=== PATIENT | male | born 1960 | race Caucasian/White ===

== ENCOUNTER 2019-10-19 10:09 | Observation (INO) | payer SELFPAY ==
[~2019-10-19] VITALS: Ht 175.3 cm; Wt 96.0 kg
[2019-10-19 10:46] LABS: BASO # 0.1 x10^3/uL (0.0-0.2); BASO % 1 % (0-3); EOS # 0.1 x10^3/uL (0.0-0.7); EOS % 1 % (0-3); HEMATOCRIT 45.2 % (39.0-53.0); HEMOGLOBIN 15.5 g/dL (13.0-17.5); LYMPH # 1.4 x10^3/uL (1.0-4.8); LYMPH % 22 % (24-48); MEAN CORPUSCULAR HEMOGLOBIN 31 pg (25-35); MEAN CORPUSCULAR HGB CONC 34 g/dL (31-37); MEAN CORPUSCULAR VOLUME 90 fL (79-100); MONO # 0.5 x10^3/uL (0.0-1.1); MONO % 8 % (0-9); NEUT # 4.3 x10^3uL (1.8-7.7); NEUT % 68 % (31-73); PLATELET COUNT 217 x10^3/uL (140-400); RED BLOOD COUNT 5.04 x10^6/uL (4.30-5.70); RED CELL DISTRIBUTION WIDTH 13.5 % (11.5-14.5); WHITE BLOOD COUNT 6.3 x10^3/uL (4.0-11.0)
[2019-10-19 10:54] LABS: CALCIUM 8.8 mg/dL (8.5-10.1); CREATININE 0.9 mg/dL (0.7-1.3); GFR 87.3; POTASSIUM 4.2 mmol/L (3.5-5.1)
--- NOTE | 2019-10-19 11:03 | RAD ---
PORTABLE CHEST 1V History: Shortness of breath. No prior studies for comparison. Note that the exam was obtained with lordotic positioning. Cardiomediastinal silhouette within normal limits. Elevation of the left hemidiaphragm with some blunting of the left costophrenic angle, could be due to scarring. No right pleural effusion. No evidence of focal infiltrate. Bones appear grossly intact. No evidence of pneumothorax. IMPRESSION: Elevation of left hemidiaphragm with blunting of the left costophrenic angle, could be due to chronic scarring or volume loss. No consolidating infiltrate is identified. No prior studies available for comparison. Electronically signed by: Elier Villagomez MD (10/19/2019 11:00 AM) [id number]
[2019-10-19 11:06] LABS: ALBUMIN 3.9 g/dL (3.4-5.0); ALBUMIN/GLOBULIN RATIO 1.2 (1.0-1.7); MAGNESIUM 2.4 mg/dL (1.8-2.4); TOTAL BILIRUBIN 0.4 mg/dL (0.2-1.0); TOTAL PROTEIN 7.1 g/dL (6.4-8.2)
--- NOTE | 2019-10-19 13:01 | PHYS DOC ---
Past History Past Medical History: No Pertinent History Past Surgical History: Hip Replacement Alcohol Use: None Adult General Chief Complaint Chief Complaint: SHORTNESS OF BREATH HPI HPI Patient is a 58-year-old male who presents to ER today for evaluation trouble breathing off and on for several weeks. Patient complains of trouble breathing whenever he walks or exerts himself. Patient said the symptoms get more frequent now, this morning he had some chest pressure associated with shortness of air. Patient said his father had heart attack at the age of 39 SO he wanted to come into have his heart checked out. Patient denies any history of blood clot disorder, no history of high blood pressure, no history of diabetes. Patient denied any cough or fever. Review of Systems Review of Systems Constitutional: Denies fever or chills [] Eyes: Denies change in visual acuity, redness, or eye pain [] HENT: Denies nasal congestion or sore throat [] Respiratory: Denies cough or shortness of breath [] Cardiovascular: No additional information not addressed in HPI [] GI: Denies abdominal pain, nausea, vomiting, bloody stools or diarrhea [] : Denies dysuria or hematuria [] Musculoskeletal: Denies back pain or joint pain [] Integument: Denies rash or skin lesions [] Neurologic: Denies headache, focal weakness or sensory changes [] Endocrine: Denies polyuria or polydipsia [] All other systems were reviewed and found to be within normal limits, except as documented in this note. Allergies Allergies Allergies Coded Allergies Type Severity Reaction Last Updated Verified No Known Drug Allergies 10/19/19 No Physical Exam Physical Exam Constitutional: Well developed, well nourished, no acute distress, non-toxic appearance. [] HENT: Normocephalic, atraumatic, bilateral external ears normal, oropharynx moist, no oral exudates, nose normal. [] Eyes: PERRLA, EOMI, conjunctiva normal, no discharge. [] Neck: Normal range of motion, no tenderness, supple, no stridor. [] Cardiovascular:Heart rate regular rhythm, no murmur [] Lungs & Thorax: Bilateral breath sounds clear to auscultation [] Abdomen: Bowel sounds normal, soft, no tenderness, no masses, no pulsatile masses. [] Skin: Warm, dry, no erythema, no rash. [] Back: No tenderness, no CVA tenderness. [] Extremities: No tenderness, no cyanosis, no clubbing, ROM intact, no edema. [] Neurologic: Alert and oriented X 3, normal motor function, normal sensory function, no focal deficits noted. [] Psychologic: Affect normal, judgement normal, mood normal. [] Current Patient Data Vital Signs Vital Signs Date Time Temp Pulse Resp B/P (MAP) Pulse Ox O2 Delivery O2 Flow Rate FiO2 10/19/19 10:23 98.0 88 18 164/96 (118) 98 Room Air Lab Results Laboratory Tests Test 10/19/19 10:35 10/19/19 10:52 White Blood Count 6.3 x10^3/uL (4.0-11.0) Red Blood Count 5.04 x10^6/uL (4.30-5.70) Hemoglobin 15.5 g/dL (13.0-17.5) Hematocrit 45.2 % (39.0-53.0) Mean Corpuscular Volume 90 fL (79-100) Mean Corpuscular Hemoglobin 31 pg (25-35) Mean Corpuscular Hemoglobin Concent 34 g/dL (31-37) Red Cell Distribution Width 13.5 % (11.5-14.5) Platelet Count 217 x10^3/uL (140-400) Neutrophils (%) (Auto) 68 % (31-73) Lymphocytes (%) (Auto) 22 % (24-48) L Monocytes (%) (Auto) 8 % (0-9) Eosinophils (%) (Auto) 1 % (0-3) Basophils (%) (Auto) 1 % (0-3) Neutrophils # (Auto) 4.3 x10^3uL (1.8-7.7) Lymphocytes # (Auto) 1.4 x10^3/uL (1.0-4.8) Monocytes # (Auto) 0.5 x10^3/uL (0.0-1.1) Eosinophils # (Auto) 0.1 x10^3/uL (0.0-0.7) Basophils # (Auto) 0.1 x10^3/uL (0.0-0.2) Sodium Level 138 mmol/L (136-145) Potassium Level 4.2 mmol/L (3.5-5.1) Chloride Level 104 mmol/L (98-107) Carbon Dioxide Level 22 mmol/L (21-32) Anion Gap 12 (6-14) Blood Urea Nitrogen 18 mg/dL (8-26) Creatinine 0.9 mg/dL (0.7-1.3) Estimated GFR (Cockcroft-Gault) 87.3 BUN/Creatinine Ratio 20 (6-20) Glucose Level 100 mg/dL (70-99) H Calcium Level 8.8 mg/dL (8.5-10.1) Magnesium Level 2.4 mg/dL (1.8-2.4) Total Bilirubin 0.4 mg/dL (0.2-1.0) Aspartate Amino Transferase (AST) 19 U/L (15-37) Alanine Aminotransferase (ALT) 32 U/L (16-63) Alkaline Phosphatase 69 U/L (46-116) Troponin I Quantitative < 0.017 ng/mL (0-0.055) PV-Wju-H-Type Natriuretic Peptide 69 pg/mL (0-124) Total Protein 7.1 g/dL (6.4-8.2) Albumin 3.9 g/dL (3.4-5.0) Albumin/Globulin Ratio 1.2 (1.0-1.7) Lipase 90 U/L (73-393) Prothrombin Time < 9.3 SEC (9.4-11.4) L Prothrombin Time INR 0.9 (0.9-1.1) Activated Partial Thromboplast Time 27 SEC (23-33) EKG EKG EKG WAS DONE AND READ BY THIS PHYSICIAN AT 1043, RATE OF 70 BPM, NSR, NO STEMI. [] Radiology/Procedures Radiology/Procedures [][address] [address] IMAGING REPORT Signed PATIENT: MICHAEL BLACK ACCOUNT: [id number] : 1960 LOCATION: ER AGE: 58 SEX: M EXAM STATUS: REG ER ORD. PHYSICIAN: EVGENY GARCIA DO REASON: soa PROCEDURE: PORTABLE CHEST 1V PORTABLE CHEST 1V History: Shortness of breath. No prior studies for comparison. Note that the exam was obtained with lordotic positioning. Cardiomediastinal silhouette within normal limits. Elevation of the left hemidiaphragm with some blunting of the left costophrenic angle, could be due to scarring. No right pleural effusion. No evidence of focal infiltrate. Bones appear grossly intact. No evidence of pneumothorax. IMPRESSION: Elevation of left hemidiaphragm with blunting of the left costophrenic angle, could be due to chronic scarring or volume loss. No consolidating infiltrate is identified. No prior studies available for comparison. Electronically signed by: Elier Villagomez MD (10/19/2019 11:00 AM) [id number] DICTATED AND SIGNED BY: ELIER VILLAGOMEZ MD DATE: 10/19/19 1100 CC: PCP,NO; EVGENY GARCIA DO ~ [place] [address] IMAGING REPORT Signed PATIENT: MICHAEL BLACK ACCOUNT: [id number] : 1960 LOCATION: ER AGE: 58 SEX: M EXAM STATUS: REG ER ORD. PHYSICIAN: EVGENY GARCIA DO REASON: SHORTNESS OF AIR, CHEST PAIN PROCEDURE: CT ANGIOGRAPHY CHEST CTA Chest with contrast: Clinical History: Chest pain and Shortness of breath. Axial helical images of the chest were obtained after the administration of 100 cc of IV Isovue-370 and timed appropriately for a pulmonary arterial study. Conventional axial reconstruction was performed in addition to coronal, sagittal and bilateral oblique MIP (maximum intensity projection). This study was ordered to detect possible pulmonary embolism. There are no filling defects to suggest pulmonary embolism. The more peripheral subsegmental pulmonary arteries are not well opacified limiting our sensitivity for small peripheral pulmonary emboli. Linear opacities in lung bases are likely scar. There is a calcified granuloma in the left lower lobe. There is significant coronary artery calcifications. There is no mediastinal or hilar lymphadenopathy. The thoracic aorta appears normal. Impression: 1. No evidence of pulmonary embolism. 2. Coronary artery calcifications indicate at high risk for myocardial infarction. RS Compliance Statement: One or more of the following individualized dose reduction techniques were utilized for this examination: 1. Automated exposure control 2. Adjustment of the mA and/or kV according to patient size 3. Use of iterative reconstruction technique Electronically signed by: Valentina Zuluaga III, MD (10/19/2019 2:00 PM) [id number] DICTATED AND SIGNED BY: VALENTINA ZULUAGA III, MD DATE: 10/19/19 1400 CC: PCPRONNA; EVGENY GARCIA DO ~ Course & Med Decision Making Course & Med Decision Making Pertinent Labs and Imaging studies reviewed. (See chart for details) Patient is a 58-year-old man who was evaluated in the ER due to chest pain and shortness of from exertion. CT SCAN OF CHEST SHOWN CALCIUM DEPOSIT IN HIS CORONARY ARTERIES INDICATING HIGH RISK OF NH. WILL ADMIT HIM FOR OBSERVATION. Dragon Disclaimer Dragon Disclaimer This electronic medical record was generated, in whole or in part, using a voice recognition dictation system. Departure Departure: Impression: Primary Impression: Chest pain Additional Impression: Exertional dyspnea Disposition: ADMITTED INPATIENT Admitting Physician: Yesika Rodriguez Condition: STABLE Referrals: PCPRONNA (PCP) HEART Score for Chest Pain PTs The HEART Score for CP Pts HEART Score for Chest Pain: HEART Score for Chest Pain Response (Comments) Value History Moderately Suspicious 1 ECG Normal 0 Age >45 - < 65 1 Risk Factors 1 or 2 Risk Factors 1 Troponin < Normal Limit 0 Total 3 Risk Factors: Risk Factors: DM, Current or recent (<one month) smoker, HTN, HLP, family history of CAD, obesity. Risk Scores: Score 0 - 3: 2.5% MACE over next 6 weeks - Discharge Home Score 4 - 6: 20.3% MACE over next 6 weeks - Admit for Clinical Observation Score 7 - 10: 72.7% MACE over next 6 weeks - Early Invasive Strategies Problem Qualifiers EVGENY GARCIA DO Oct 19, 2019 13:01
[2019-10-19] MEDS ORDERED: IOHEXOL 350 MG/ML 100 ML VIAL. IV ONE (13:15)
--- NOTE | 2019-10-19 14:03 | RAD ---
CTA Chest with contrast: Clinical History: Chest pain and Shortness of breath. Axial helical images of the chest were obtained after the administration of 100 cc of IV Isovue-370 and timed appropriately for a pulmonary arterial study. Conventional axial reconstruction was performed in addition to coronal, sagittal and bilateral oblique MIP (maximum intensity projection). This study was ordered to detect possible pulmonary embolism. There are no filling defects to suggest pulmonary embolism. The more peripheral subsegmental pulmonary arteries are not well opacified limiting our sensitivity for small peripheral pulmonary emboli. Linear opacities in lung bases are likely scar. There is a calcified granuloma in the left lower lobe. There is significant coronary artery calcifications. There is no mediastinal or hilar lymphadenopathy. The thoracic aorta appears normal. Impression: 1. No evidence of pulmonary embolism. 2. Coronary artery calcifications indicate at high risk for myocardial infarction. PQRS Compliance Statement: One or more of the following individualized dose reduction techniques were utilized for this examination: 1. Automated exposure control 2. Adjustment of the mA and/or kV according to patient size 3. Use of iterative reconstruction technique Electronically signed by: Vincent Melgoza III, MD (10/19/2019 2:00 PM) [id number]
[2019-10-19] MEDS ORDERED: ONDANSETRON PF 4 MG/2 ML VIAL. IV PRN (14:45)
[2019-10-19] MEDS ORDERED: ASPIRIN ENTERIC COATED 325 MG TABLET.DR. PO ONE (14:45)
[2019-10-19 15:45] VITALS: BP 136/86
--- NOTE | 2019-10-19 17:55 | EKG ---
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
[2019-10-19] MEDS ORDERED: MELO15TA6 PO (18:26)
[2019-10-19 19:00] VITALS: BP 123/71
[2019-10-19 23:17] VITALS: BP 124/70
[2019-10-20 06:25] VITALS: BP 136/87
[2019-10-20 07:53] VITALS: BP 118/70
[2019-10-20 11:00] VITALS: BP 112/68
--- NOTE | 2019-10-20 14:09 | HP ---
ADMIT DATE: 10/19/2019 HISTORY OF PRESENT ILLNESS: The patient is a 58-year-old male patient who presented to the Emergency Room with a complaint of shortness of breath that has been going on and off for several weeks. He complains of shortness of breath whenever he walks or exerts himself and as of recently, his symptoms have been getting worse. In the morning of the admission yesterday, he had some chest pressure associated with shortness of breath. The patient said his father has first heart attack at 39 and he himself denied any chest pain. Denied any nausea, vomiting, diaphoresis or radiation and he is not known to have high blood pressure or diabetes and therefore, the patient was admitted. He was evaluated in the Emergency Room. His EKG showed that he was in sinus rhythm at a rate of 70 beats per minute, no ST-segment elevation MS. His chest x-ray showed that he has elevation of left hemidiaphragm with blunting of the left costophrenic angle. No consolidating infiltrate identified. No prior studies available for comparison. His first troponin was less than 0.017 and his prothrombin time, INR and aPTT were normal. White cell count is also within normal range. The patient was admitted to do 2 more sets of cardiac enzyme, check his fasting lipid profile and consult the cardiology team. PAST MEDICAL HISTORY: Basically unremarkable, has never been known to have high blood pressure, diabetes or hyperlipidemia. PAST SURGICAL HISTORY: Significant for left hip fracture, status post open reduction and internal fixation, also had some surgery on his left hand. ALLERGIES: He has no known drug allergies. MEDICATIONS: He is currently on Mobic 15 mg daily for aches and pains. FAMILY HISTORY: He has 4 brothers that are younger and all healthy. His father at the age of 72; however, his first myocardial infarction when he was at 41 years old and has had coronary artery bypass graft twice. His mother at age of 84. She is known to have hypertension and Alzheimer's disease. SOCIAL HISTORY: He is , has children from previous marriage. He smokes half a pack a day for almost 40 years. He drinks alcohol on a daily basis. He drinks 2-4 beers every day. He used marijuana occasionally. He used cocaine long time ago according to him. He works in [employer] and his job sometimes dictated he climbs stairs up and down. REVIEW OF SYSTEMS: Unremarkable and as per history of present illness. PHYSICAL EXAMINATION: GENERAL: On arrival to the Emergency Room, he looked well and was clearly in no apparent respiratory distress. No pallor, jaundice, cyanosis or thyromegaly. No jugular venous distention. No limb edema. VITAL SIGNS: His heart rate was 88, blood pressure was 164/96, temperature was 98, respiratory rate was 18 and oxygen saturation was 98%. HEAD, EYES, EARS, NOSE AND THROAT: Normocephalic, atraumatic. NECK: Supple. CARDIAC: Normal first and second heart sounds with no gallop, rub or murmur. CHEST: Clear to auscultation. No crepitation or rhonchi. ABDOMEN: Distended, soft, nontender. NEUROLOGIC: He was grossly intact. LABORATORY DATA: White cell count was 6300, hemoglobin 15, hematocrit 45, MCV 90 and platelet count 217,000. Serum sodium was 138, potassium 4.2, chloride 104, bicarbonate 22, anion gap of 12, BUN 18, creatinine 0.9. Blood sugar was 100 mg/dL. First troponin was less than 0.017. Total protein was 7.1, albumin was 3.9 and lipase was 19. The patient was admitted to do 2 more sets of cardiac enzyme, check his fasting lipid profile. He has had a chest x-ray, which showed that there is elevation of the left hemidiaphragm with blunting of the left costophrenic angle, could be due to chronic scarring or volume loss. No consolidating infiltrate identified. No prior studies available for comparison. His CT angio of the chest showed that the patient has no evidence of pulmonary embolism, has coronary artery calcification, indicating at high risk for myocardial infarction. There is no mediastinal or hilar lymphadenopathy. The thoracic aorta appears normal. DICTATION ENDS HERE. TRAVIS POLO MD DR: FELIX/chiki JOB#: [id number] / [id number]
--- NOTE | 2019-10-20 14:25 | PDOC2 ---
CONSULT Date of Admission DATE: 10/20/19 TIME: 14:20 Reason for Consult: Chest pain Referring Physician: Dr. Rodriguez Chief Complaint Chest pain Source: Chart review, Patient Problem List Problems Medical Problems: (1) Chest pain Status: Acute (2) Exertional dyspnea Status: Acute History of Present Illness 58-year-old male without any known previous cardiac history presented with dyspnea on exertion since last few weeks. He also complained of intermittent episodes of left-sided sharp chest pain 5/10 severity. He denied any orthopnea/PND, palpitations or syncope. He has strong family history of premature coronary artery disease. He smokes cigarettes and marijuana but denied any other illicit drug use Cardiovascular: No pertinent hx Past Surgical History Left hip fracture surgical repair Family History Positive for premature coronary artery disease Social History Patient is a current smoker with 20 pack years smoking history. He admitted to moderate to heavy alcohol intake. He he also admitted to marijuana use and previous cocaine use. Current Medications Current Medications Iohexol (Omnipaque 350 Mg/ml) 100 ml 1X ONCE IV Last administered on 10/19/19at 13:25; Start 10/19/19 at 13:15; Stop 10/19/19 at 13:16; Status DC Ondansetron HCl (Zofran) 4 mg PRN Q4HRS PRN IV NAUSEA/VOMITING; Start 10/19/19 at 14:45; Stop 10/20/19 at 14:44 Aspirin (Aspirin Enteric Coated) 325 mg 1X ONCE PO Last administered on 10/19/19at 17:52; Start 10/19/19 at 14:45; Stop 10/19/19 at 14:46; Status DC Active Scripts Active Reported Mobic (Meloxicam) 15 Mg Tablet 1 Tab PO DAILY Allergies: Coded Allergies: No Known Drug Allergies (Unverified , 10/19/19) PSYCHOLOGICAL ROS: No: Hallucinations Eyes: No: Loss of vision HEENT: No: Epistaxis Respiratory: No: Orthopnea Cardiovascular: yes: Chest Pain Gastrointestinal: No: Vomiting, Diarrhea Neurological: No: Seizures Skin: No: Rash General: Alert, Oriented X3 HEENT: Atraumatic Lungs: Clear to auscultation Heart: Regular rate Abdomen: Soft Extremities: No edema Psych/Mental Status: Mood NL VITALS Vital Signs Date Time Temp Pulse Resp B/P (MAP) Pulse Ox O2 Delivery O2 Flow Rate FiO2 10/20/19 11:00 97.5 65 10 112/68 (83) Room Air 10/20/19 07:53 98 Labs Laboratory Tests Test 10/19/19 10:35 10/19/19 10:52 10/19/19 18:10 10/19/19 20:47 White Blood Count 6.3 x10^3/uL (4.0-11.0) Red Blood Count 5.04 x10^6/uL (4.30-5.70) Hemoglobin 15.5 g/dL (13.0-17.5) Hematocrit 45.2 % (39.0-53.0) Mean Corpuscular Volume 90 fL (79-100) Mean Corpuscular Hemoglobin 31 pg (25-35) Mean Corpuscular Hemoglobin Concent 34 g/dL (31-37) Red Cell Distribution Width 13.5 % (11.5-14.5) Platelet Count 217 x10^3/uL (140-400) Neutrophils (%) (Auto) 68 % (31-73) Lymphocytes (%) (Auto) 22 % (24-48) Monocytes (%) (Auto) 8 % (0-9) Eosinophils (%) (Auto) 1 % (0-3) Basophils (%) (Auto) 1 % (0-3) Neutrophils # (Auto) 4.3 x10^3uL (1.8-7.7) Lymphocytes # (Auto) 1.4 x10^3/uL (1.0-4.8) Monocytes # (Auto) 0.5 x10^3/uL (0.0-1.1) Eosinophils # (Auto) 0.1 x10^3/uL (0.0-0.7) Basophils # (Auto) 0.1 x10^3/uL (0.0-0.2) Sodium Level 138 mmol/L (136-145) Potassium Level 4.2 mmol/L (3.5-5.1) Chloride Level 104 mmol/L (98-107) Carbon Dioxide Level 22 mmol/L (21-32) Anion Gap 12 (6-14) Blood Urea Nitrogen 18 mg/dL (8-26) Creatinine 0.9 mg/dL (0.7-1.3) Estimated GFR (Cockcroft-Gault) 87.3 BUN/Creatinine Ratio 20 (6-20) Glucose Level 100 mg/dL (70-99) Calcium Level 8.8 mg/dL (8.5-10.1) Magnesium Level 2.4 mg/dL (1.8-2.4) Total Bilirubin 0.4 mg/dL (0.2-1.0) Aspartate Amino Transf (AST/SGOT) 19 U/L (15-37) Alanine Aminotransferase (ALT/SGPT) 32 U/L (16-63) Alkaline Phosphatase 69 U/L (46-116) Troponin I Quantitative < 0.017 ng/mL (0-0.055) < 0.017 ng/mL (0-0.055) < 0.017 ng/mL (0-0.055) JK-Soi-C-Type Natriuretic Peptide 69 pg/mL (0-124) Total Protein 7.1 g/dL (6.4-8.2) Albumin 3.9 g/dL (3.4-5.0) Albumin/Globulin Ratio 1.2 (1.0-1.7) Lipase 90 U/L (73-393) Prothrombin Time < 9.3 SEC (9.4-11.4) Prothromb Time International Ratio 0.9 (0.9-1.1) Activated Partial Thromboplast Time 27 SEC (23-33) Assessment/Plan 1. Dyspnea on exertion and intermittent episodes of atypical chest pain. He does not have any clinical evidence for fluid overload. EKG without acute changes and cardiac enzymes negative. Symptoms could be secondary to COPD but considering his family history, ischemia needs to be ruled out. Plan for outpatient exercise stress echocardiogram. 2. Smoking and alcohol abuse: Advised smoking cessation and abstinence from alcohol use Thank you for your consultation PATRICIA SHAH MD Oct 20, 2019 14:25
--- NOTE | 2019-10-20 15:13 | DS ---
DATE OF DISCHARGE: HOSPITAL COURSE: The patient is a 58-year-old male patient with unremarkable past medical history who came to the Emergency Room with exertional dyspnea that has been going on for the last 2 weeks. He also complained of intermittent episode of chest pressure. Denied any nausea or vomiting. Denied any diaphoresis. Denied any dizziness history; however, he has a very strong family history of premature coronary artery disease. His father had his first heart attack when he was 41 years old. He is also a smoker and abused marijuana. He was admitted, has 3 sets of cardiac enzymes that ruled out acute myocardial infarction. His EKG also was unrevealing. We did his lipid profile, the results were still pending at the time of this dictation. He was seen in consultation by the qa auditor and as he has 3 cardiac enzymes that were less than 0.017, a decision was made to discharge him home and to arrange for ischemic workup as an outpatient. He was also advised to quit smoking and drinking alcohol. TRAVIS POLO MD DR: FELIX/chiki JOB#: [id number] / [id number]
== END 2019-10-20 15:05 | disposition home or self-care (01) ==
LOC: ER 10:09 → ICU 14:30 → INTOOBSV 14:30
PROVIDERS: ADMIT Internal Medicine; ATTEND Internal Medicine
DX: R06.02 Shortness of breath (principal); R07.89 Other chest pain; F17.200 Nicotine dependence, unspecified, uncomplicated; F10.10 Alcohol abuse, uncomplicated; F12.90 Cannabis use, unspecified, uncomplicated; Z79.82 Long term (current) use of aspirin; Z79.899 Other long term (current) drug therapy; Z96.649 Presence of unspecified artificial hip joint
CPT/HCPCS: 36415; 71045; 71275; 80053; 80061; 83690; 83735; 83880; 84484; 85025; 85610; 85730; 93005; 99285; 99406; G0378; Q9967; G0379